=== PATIENT | male | born 1965 | race African-American/Black ===

== ENCOUNTER 2020-08-05 16:08 | Emergency (ER) | payer SELFPAY ==
[~2020-08-05] VITALS: Ht 198.1 cm; Wt 114.0 kg
[2020-08-05 16:09] VITALS: BP 136/70
== END 2020-08-05 23:39 | disposition left against medical advice (07) ==
LOC: ER 16:08
DX: Z53.21 Procedure and treatment not carried out due to patient leaving prior to being seen by health care provider (principal)
CPT/HCPCS: 93005; 99281